=== PATIENT | female | born 1985 | race Caucasian/White ===

== ENCOUNTER 2018-01-23 04:30 | Emergency (ER) | payer OTHER ==
[~2018-01-23] VITALS: Ht 160 cm; Wt 74.0 kg
[2018-01-23 05:19] LABS: HEMOGLOBIN 13.5 G/DL (11.9-15.5); MCH 27.6 PG (29.0-34.0); MCHC 33.8 G/DL (30.0-36.0); MCV 81.8 FL (83-99); PLATELET COUNT 339 K/uL (156-360); RBC DIS.WIDTH-SD 38.4 % (39-53); RED BLOOD COUNT 4.89 M/uL (3.80-5.20); WHITE BLOOD COUNT 12.6 K/uL (4.1-10.2)
[2018-01-23 05:35] LABS: CHLORIDE 105 mEq/L (99-109); POTASSIUM 4.1 mEq/L (3.7-5.4); SODIUM 138 mEq/L (136-147)
[2018-01-23 05:36] LABS: GLUCOSE 116 mg/dL (70-99)
[2018-01-23 05:40] LABS: GFR ESTIMATE (CALCULATED) > 59 mL/min/
[2018-01-23 05:41] LABS: UREA NITROGEN (BUN) 11 mg/dL (9-23)
[2018-01-23 05:42] LABS: ALBUMIN 4.3 g/dL (3.2-4.8)
[2018-01-23 05:45] LABS: TOTAL PROTEIN 7.8 g/dL (6.4-8.3)
[2018-01-23 05:47] LABS: TOTAL BILIRUBIN 0.5 mg/dL (0.0-1.0)
[2018-01-23 05:48] LABS: ALKALINE PHOSPHATASE 108 IU/L (3-129); TROP-I INTERPRETATION NEGATIVE; TROPONIN-I < 0.01 ng/mL (0.0-0.30)
[2018-01-23 05:50] LABS: AST (GOT) 16 IU/L (2-34); DIRECT BILIRUBIN 0.2 mg/dL (0.0-0.3)
[2018-01-23 05:51] LABS: ALT (GPT) 14 IU/L (3-49); LIPASE 17 U/L (1.0-51.0)
[2018-01-23 06:44] VITALS: BP 127/81
== END 2018-01-23 06:50 | disposition home or self-care (01) ==
LOC: EME 04:30
PROVIDERS: Emergency Medicine
DX: R07.89 Other chest pain (principal); R94.31 Abnormal electrocardiogram [ECG] [EKG]; F41.9 Anxiety disorder, unspecified
CPT/HCPCS: 71046; 80048; 80076; 83690; 84484; 85027; 85379; 93005; 99281; 99285